=== PATIENT | female | born 1985 | race African-American/Black ===

== ENCOUNTER 2022-03-23 23:10 | Inpatient (IN) | payer OTHER, SELFPAY ==
--- NOTE | ~2022-03-23 | CT_ITS ---
EXAMINATION: CT HEAD WITHOUT CONTRAST CLINICAL INFORMATION: Fall with head strike on corner of bed. COMPARISON: None. TECHNIQUE: Contiguous axial imaging was performed from the skull base to vertex without intravenous administration of contrast. This CT examination was performed using dose optimization techniques as appropriate, variously including the following: *Automated exposure control *Adjustment of mA and/or kV according to patient size (this includes techniques or standardized protocols for targeted exams where dose is matched to indication/reason for exam; i.e. extremities or head) *Use of iterative reconstruction technique DLP: 599 mGy-cm. FINDINGS: There is no intracranial hemorrhage, extra-axial collection, mass effect, or territorial infarction. The ventricles are normal in size without hydrocephalus. The calvarium is intact without fracture. There is mild paranasal sinus mucosal thickening. CT/CT head/brain wo IV con IMPRESSION: No acute intracranial abnormality.
--- OUTSIDE RECORDS SUMMARY | 2022-03-23 23:13 | XMS_ITS | Continuity of Care Document ---
:1985 Author Organization [facility] Address [address] [place] [address]- Care Team Providers Name Role Phone Mirna Humphreys NP Primary Care Physician [place] [facility] [place](s): 01/04/22 - 01/04/[address] [address]- Discharge Disposition: A-D/C AMA Attending Physician: Rosenda Rojas MD Admitting Physician: Rosenda Rojas MD Referring Physician: Not on Staff, Referring MD Allergies, Adverse Reactions, Alerts Substance Reaction Severity Status Other Food Allergy [facility] Active Immunizations Given and Recorded Vaccine Date Status Refusal Reason influenza virus vaccine, inactivated1 01/25/18 Given influenza virus vaccine, inactivated2 01/01/16 Given tetanus/diphtheria/pertussis, acel(Tdap) 04/11/17 Given tetanus/diphtheria/pertussis, acel(Tdap)3 12/02/15 Given tetanus/diphtheria/pertussis, acel(Tdap) 03/06/13 Given Human Papillomavirus Vaccine 11/01/11 Given Human Papillomavirus Vaccine 08/30/11 Given Hepatitis B Vaccine (old term) 03/01/01 Given Hepatitis B Vaccine (old term) 04/21/00 Given Hepatitis B Vaccine (old term) 11/17/99 Given Measles/Mumps/Rubella Virus Vaccine 04/21/00 Given Measles/Mumps/Rubella Virus Vaccine 02/04/88 Given tetanus-diphtheria toxoids (Td) 11/17/99 Given Diphth/Pertussis,Acel/Tetanus (oldterm)4 05/16/91 Given Diphth/Pertussis,Acel/Tetanus (oldterm)5 11/14/88 Given Diphth/Pertussis,Acel/Tetanus (oldterm)6 04/14/88 Given Diphth/Pertussis,Acel/Tetanus (oldterm) 02/04/88 Given Diphth/Pertussis,Acel/Tetanus (oldterm) 86 Given Poliovirus Vaccine, Inactivated7 05/16/91 Given Poliovirus Vaccine, Inactivated8 11/14/88 Given Poliovirus Vaccine, Inactivated9 04/14/88 Given Poliovirus Vaccine, [id number] 02/04/88 Given Poliovirus Vaccine, Inactivated 86 Given Haemophilus B Conj Vaccine (oldterm) 02/04/88 Given 1Result Comment: [01/25/2018] [facility][NOTE 3] [id number] Syringe [address]-88 [id number] Comment: [01/01/2016] Left arm injection, pt tolerated [id number] Comment: Tdap VIS given directly to patient. Pt. denies egg allergy, adverse reaction to pastvaccine, hx of GBS.4Admin Note: Exact day unknown.5Admin Note: Exact day unknown.6Admin Note: Exact day unknown.7Admin Note: Exact day unknown.8Admin Note: Exact day unknown.9Admin Note: OPV, Exact day unknown.10Admin Note: OPV Medications folic acid 1 mg oral tablet See Instructions, TAKE 1 TABLET BY MOUTH DAILY, BUT IF INCREASE TO 4 TABLETS DAILY, # 120 tablet, Refills 5, Tot. Refills 5, 10/09/20 14:46:00 EDT, Instructions Replace Required Details, Routeto Pharmacy Electronically, [facility]... Start Date: 10/09/20 Status: Orderedlamotrigine 100 mg oral tablet 150 mg, 1.5, tablet, By Mouth, 2 times a day, # 90 tablet, Refills 5, Tot. Refills 5, Maintenance, 06/10/21 16:13:00 EDT, Route to Pharmacy Electronically, [facility] #[id number], Increasing the dose., 158.6, cm, 04/09/20 14:18:00 EST, Height Start Date: 06/10/21 Stop Date: 12/07/21 Status: Orderedlamotrigine 100 mg oral tablet See Instructions, TAKE 1 TABLET BY MOUTH TWICE DAILY, # 60 tablet, Refills 5, Tot. Refills 5, Instructions Replace Required Details, Route to Pharmacy Electronically, [facility] #[id number], 158.6, cm, 04/09/20 14:18:00 EST, Height Start Date: 05/22/21 Status: OrderedlevETIRAcetam 1000 mg oral tablet See Instructions, TAKE 2 TABLETS BY MOUTH TWICE DAILY, # 120 tablet, 5 Refills, 06/25/21 16:43:00 EDT, [facility] #[id number], 158.6, cm, 04/09/20 14:18:00 EST, Height Start Date: 06/25/21 Status: OrderedOXcarbazepine 600 mg oral tablet 2 tablet, By Mouth, 2 times a day, # 120 tablet, 5 Refills, Maintenance, 11/16/21 16:27:00 EDT, [facility] #[id number], 158.6, cm, 04/09/20 14:18:00 EST, Height Start Date: 11/16/21 Status: Ordered Problem List Condition Confirmation Course Effective Dates Status Health Stat us Informant Complex partial Confirmed Active seizure disorder Headache Confirmed Active Irregular menses Confirmed Active Uterine scar from Confirmed Active previous delivery affecting Vital Signs Most recent to oldest [Reference Range]: 1 2 Oxygen Saturation [94-100 %] 100 % 100 % (01/04/22 11:30 AM) (01/04/22 11:12 AM) Pulse Rate [55-90 bpm] 106 bpm 100 bpm *H* *H* (01/04/22 11:30 AM) (01/04/22 11:12 AM) Blood Pressure [90-138/55-84 mm Hg] 141/85 mm Hg 130/ 94 mm Hg *H* (01/04/22 11:12 AM) (01/04/22 11:30 AM) Respiratory Rate [16-30 br/min] 20 br/min 16 br/mi n (01/04/22 11:30 AM) (01/04/22 11:12 AM) Mode of Delivery (Oxygen) Room air (01/04/22 11:30 AM) Blood pressure sites Arm, right (01/04/22 11:30 AM) Social History Social History Type Response Tobacco Use: 4 or less cigarettes(le ss than 1/4 pack)/day in last 30 days. Sex EKG study Event Display: ECG 12-Lead Authored Date: Please click on pdf link to open report Event Display: ECG 12-Lead Authored Date: Ventricular Rate: 103 BPM Atrial Rate: 103 BPM P-R Interval: 124 ms QRS Duration: 74 ms Q-T Interval: 356 ms QTC Calculation(Bazett): 466 ms P [place]: 80 degrees R [place]: 83 degrees T [place]: 56 degrees Sinus tachycardia Biatrial enlargement Left ventricular hypertrophy Abnormal ECG When compared with ECG of 21-JUN-2016 11:26, No significant change was found Confirmed by HERBIE TY ([id number]) on 01/04/2022 3:05:39 PM [place]: HERBIE TY Patient Care team information Care Team PersonnelName: Mirian Arriaga RN Position: S RN Member Role: Primary Care Nurse Name: Mirna Humphreys NP Position: [facility] PCO Associate Professional Member Role: PCP Address: Address: [address] [place] [id number] Name: Giuliano Cortez RN Position: [facility] RN Member Role: Primary Care Nurse Name: Radha Hauser RN Position: [facility] OB RN Member Role: Primary Care Nurse Name: Connie Inman Position: [facility] Associate Professional Member Role: ED Physician Help Desk Analyst Address: Address: [address] [place] [address]- Name: Geno Brooke RN Position: [facility] ED RN W/OE and Tasks Member Role: Patient Care Provider Name: Rosenda Rojas MD Position: [facility] ED Medicine MD Member Role: Admitting Physician Address: Address: [address] [place] [address] - Name: Kodak Syed Position: [facility] ED TA [facility] Member Role: Patient Care Provider Care Team Related PersonsName: GENO SHIPMAN Address: home [address] [address] Name: SALVADOR SHIPMAN Address: home [address] [place] [address]
--- OUTSIDE RECORDS SUMMARY | 2022-03-23 23:13 | XMS_ITS | Continuity of Care Document ---
:1985 Author Organization [address], [address] [place] [address]- Care Team Providers Name Role Phone Mirna Humphreys NP Primary Care Physician Encounter [facility] Date(s): 11/16/21 - 12/16/[address], [address] [place], [place] [address] Allergies, Adverse Reactions, Alerts Substance Reaction Severity Status Other Food Allergy [place] Active Immunizations Given and Recorded Vaccine Date [...] Poliovirus Vaccine, Inactivated9 04/14/88 Given Poliovirus Vaccine, [id number] 02/04/88 Given Poliovirus Vaccine, Inactivated 86 Given Haemophilus B Conj Vaccine (oldterm) 02/04/88 Given 1Result Comment: [01/25/2018] [facility] [place] [id number] [facility] [id number] [id number] Comment: [01/01/2016] Left arm injection, pt tolerated [id number] Comment: Tdap VIS given directly to patient. [...] Instructions Replace Required Details, Routeto Pharmacy Electronically, [facility]... Start Date: 10/09/20 Status: Orderedlamotrigine 100 mg oral tablet 150 mg, 1.5, tablet, By Mouth, 2 times a day, # 90 tablet, Refills 5, Tot. Refills 5, Maintenance, 06/10/21 16:13:00 EDT, Route to Pharmacy Electronically, [facility] #[id number], Increasing the dose., 158.6, cm, 04/09/20 14:18:00 EST, Height Start Date: 06/10/21 Stop Date: 12/07/21 Status: Orderedlamotrigine 100 mg oral tablet See Instructions, TAKE 1 TABLET BY MOUTH TWICE DAILY, # 60 tablet, Refills 5, Tot. Refills 5, Instructions Replace Required Details, Route to Pharmacy Electronically, [facility] #[id number], 158.6, cm, 04/09/20 14:18:00 EST, Height Start Date: 05/22/21 Status: OrderedlevETIRAcetam 1000 mg oral tablet See Instructions, TAKE 2 TABLETS BY MOUTH TWICE DAILY, # 120 tablet, 5 Refills, 06/25/21 16:43:00 EDT, [facility] #[id number], 158.6, cm, 04/09/20 14:18:00 EST, Height Start Date: 06/25/21 Status: OrderedOXcarbazepine 600 mg oral tablet 2 tablet, By Mouth, 2 times a day, # 120 tablet, 5 Refills, Maintenance, 11/16/21 16:27:00 EDT, [facility] #[id number], 158.6, cm, 04/09/20 14:18:00 EST, Height Start Date: 11/16/21 Status: Ordered Problem List Condition Confirmation Course Effective Dates Status Health Stat us Informant Complex partial Confirmed Active seizure disorder Headache Confirmed Active Irregular menses Confirmed Active Uterine scar from Confirmed Active previous delivery affecting Social History Social History Type Response Tobacco Use: 4 or less cigarettes(le ss than 1/4 pack)/day in last 30 days. Sex Patient Care team information PersonnelName: Mirna Humphreys NP Address: Address: [address] [place] [address]
--- OUTSIDE RECORDS SUMMARY | 2022-03-23 23:13 | XMS_ITS | Continuity of Care Document ---
:1985 Author Organization [facility] Address Unavailable , Care Team Providers Name Role Phone Petr MOLINA, Mirna Primary Care Physician [place] [facility] [place](s[place] 04/16/21 - 05/16/21 [facility] Allergies, Adverse Reactions, Alerts Substance Reaction Severity [...] Poliovirus Vaccine, Inactivated9 04/14/88 Given Poliovirus Vaccine, [id number] 02/04/88 Given Poliovirus Vaccine, Inactivated 86 Given Haemophilus B Conj Vaccine (oldterm) 02/04/88 Given 1Result Comment: [01/25/2018] [facility] [id number] Syringe [address]-12 [id number] Comment: [01/01/2016] Left arm injection, pt tolerated [id number] Comment: Tdap VIS given directly to patient. [...] Instructions Replace Required Details, Routeto Pharmacy Electronically, [facility]... Start Date: 10/09/20 Status: Orderedlamotrigine 100 mg oral tablet 150 mg, 1.5, tablet, By Mouth, 2 times a day, # 90 tablet, Refills 5, Tot. Refills 5, Maintenance, 10/09/20 14:43:00 EDT, Route to Pharmacy Electronically, [facility] #[id number], Increasing the dose., 158.6, cm, 04/09/20 14:18:00 EST, Height Start Date: 10/09/20 Stop Date: 04/07/21 Status: OrderedlevETIRAcetam 1000 mg oral tablet 2 tablet, By Mouth, 2 times a day, # 120 tablet, 5 Refills, Maintenance, 10/09/20 14:45:00 EDT, [facility] #[id number], 158.6, cm, 04/09/20 14:18:00 EST, Height Start Date: 10/09/20 Stop Date: 04/07/21 Status: OrderedOXcarbazepine 600 mg oral tablet 2 tablet, By Mouth, 2 times a day, # 120 tablet, 5 Refills, Maintenance, 04/08/21 15:03:00 EST, [facility] #[id number], 158.6, cm, 04/09/20 14:18:00 EST, Height Start Date: 04/08/21 Status: Ordered Problem List Condition Effective Dates Status Health Status Informant Complex partial seizure Active disorder(Confirmed) Headache(Confirmed) Active Irregular menses(Confirmed) Active Uterine scar from previous Active delivery affecting (Confirmed) Social History Social History Type Response Tobacco Use: 4 or less cigarettes(le ss than 1/4 pack)/day in last 30 days. Sex
--- OUTSIDE RECORDS SUMMARY | 2022-03-23 23:13 | XMS_ITS | Continuity of Care Document ---
:1985 Author Organization [facility] Address [address] [place] [address]- Care Team Providers Name Role Phone Mirna Humphreys NP Primary Care Physician Encounter [facility] [place] Date(s): 04/18/20 - 05/18/20 [facility] [address] [place] [address]- Attending Physician: Juve Parson Admitting Physician: AdmJuve medeiros Referring Physician: AdmtrJuve Allergies, Adverse Reactions, Alerts Substance Reaction Severity [...] Poliovirus Vaccine, Inactivated9 04/14/88 Given Poliovirus Vaccine, [id number] 02/04/88 Given Poliovirus Vaccine, Inactivated 86 Given Haemophilus B Conj Vaccine (oldterm) 02/04/88 Given 1Result Comment: [01/25/2018] [facility] [address]-65 Syringe [id number] [id number] Comment: [01/01/2016] Left arm injection, pt tolerated [id number] Comment: Tdap VIS given directly to patient. [...] TABLETS DAILY, # 120 tablet, Refills 5, Maintenance, Instructions Replace Required Details, Route to Pharmacy Electronically, [facility] #[id number], 158.6, cm, ... Start Date: 04/20/19 Status: Orderedlamotrigine 100 mg oral tablet 1, tablet, By Mouth, 2 times a day, # 60 tablet, Refills 5, Tot. Refills 0, Maintenance, 01/17/20 15:32:00 EST, Route to Pharmacy Electronically, [facility] #[id number], 158.6, cm, 10/08/19 14:34:00 EDT, Height Start Date: 01/17/20 Status: OrderedlevETIRAcetam 1000 mg oral tablet 2 tablet, By Mouth, 2 times a day, # 120 tablet, 4 Refills, Maintenance, 03/27/20 16:45:00 EST, [facility] #[id number], 158.6, cm, 10/08/19 14:34:00 EDT, Height Start Date: 03/27/20 Status: OrderedOXcarbazepine 600 mg oral tablet 2 tablet, By Mouth, 2 times a day, # 120 tablet, 5 Refills, Maintenance, 01/17/20 15:32:00 [facility], 158.6, cm, 10/08/19 14:34:00 EDT, Height Start Date: 01/17/20 Status: Ordered Problem List Condition Effective Dates Status Health Status Informant Complex partial seizure Active disorder(Confirmed) Headache(Confirmed) Active Irregular menses(Confirmed) Active Uterine scar from previous Active delivery affecting (Confirmed) Social History Social History Type Response Tobacco Use: 4 or less cigarettes(le ss than 1/4 pack)/day in last 30 days. Sex
--- OUTSIDE RECORDS SUMMARY | 2022-03-23 23:13 | XMS_ITS | Continuity of Care Document ---
:1985 Author Organization [facility] Address Unavailable , Care Team Providers Name Role Phone Mirna Humphreys NP Primary Care Physician [place] [facility] [place] 01/16/21 - 05/16/21 [facility] Attending Physician: Not on Staff, Attending MD Allergies, Adverse Reactions, Alerts Substance Reaction [...] Poliovirus Vaccine, Inactivated9 04/14/88 Given Poliovirus Vaccine, [id number] 02/04/88 Given Poliovirus Vaccine, Inactivated 86 Given Haemophilus B Conj Vaccine (oldterm) 02/04/88 Given 1Result Comment: [01/25/2018] [facility] [place] [address]-79 Syringe [id number] Comment: [01/01/2016] Left arm injection, pt tolerated [id number] Comment: Tdap VIS given directly to patient. [...] Instructions Replace Required Details, Routeto Pharmacy Electronically, [facility]... Start Date: 10/09/20 Status: Orderedlamotrigine 100 mg oral tablet 150 mg, 1.5, tablet, By Mouth, 2 times a day, # 90 tablet, Refills 5, Tot. Refills 5, Maintenance, 10/09/20 14:43:00 EDT, Route to Pharmacy Electronically, [facility] #[id number], Increasing the dose., 158.6, cm, 04/09/20 14:18:00 EST, Height Start Date: 10/09/20 Stop Date: 04/07/21 Status: OrderedlevETIRAcetam 1000 mg oral tablet 2 tablet, By Mouth, 2 times a day, # 120 tablet, 5 Refills, Maintenance, 10/09/20 14:45:00 EDT, [facility] #[id number], 158.6, cm, 04/09/20 14:18:00 EST, Height Start Date: 10/09/20 Stop Date: 04/07/21 Status: OrderedOXcarbazepine 600 mg oral tablet 2 tablet, By Mouth, 2 times a day, # 120 tablet, 5 Refills, Maintenance, 04/08/21 15:03:00 EST, [facility] #[id number], 158.6, cm, 04/09/20 14:18:00 EST, Height Start [...]
--- OUTSIDE RECORDS SUMMARY | 2022-03-23 23:13 | XMS_ITS | Continuity of Care Document ---
:1985 Author Organization [facility] Address Unavailable , Care Team Providers Name Role Phone Mirna Humphreys NP Primary Care Physician Encounter [facility] [place] Date(s): 04/16/21 - 05/16/21 [facility] Attending Physician: Juve Parson Admitting Physician: Juve Parson Referring Physician: Juve Parson Allergies, Adverse Reactions, Alerts Substance Reaction Severity [...] Poliovirus Vaccine, Inactivated9 04/14/88 Given Poliovirus Vaccine, [id number] 02/04/88 Given Poliovirus Vaccine, Inactivated 86 Given Haemophilus B Conj Vaccine (oldterm) 02/04/88 Given 1Result Comment: [01/25/2018] [facility] [address]-57 Syringe [address]-43 [id number] Comment: [01/01/2016] Left arm injection, pt tolerated [id number] Comment: Tdap VIS given directly to patient. [...] Instructions Replace Required Details, Routeto Pharmacy Electronically, [facility]... Start Date: 10/09/20 Status: Orderedlamotrigine 100 mg oral tablet 150 mg, 1.5, tablet, By Mouth, 2 times a day, # 90 tablet, Refills 5, Tot. Refills 5, Maintenance, 10/09/20 14:43:00 EDT, Route to Pharmacy Electronically, [facility] #[id number], Increasing the dose., 158.6, cm, 04/09/20 14:18:00 EST, Height Start Date: 10/09/20 Stop Date: 04/07/21 Status: OrderedlevETIRAcetam 1000 mg oral tablet 2 tablet, By Mouth, 2 times a day, # 120 tablet, 5 Refills, Maintenance, 10/09/20 14:45:00 EDT, [facility] #[id number], 158.6, cm, 04/09/20 14:18:00 EST, Height Start Date: 10/09/20 Stop Date: 04/07/21 Status: OrderedOXcarbazepine 600 mg oral tablet 2 tablet, By Mouth, 2 times a day, # 120 tablet, 5 Refills, Maintenance, 04/08/21 15:03:00 EST, [facility] #[id number], 158.6, cm, 04/09/20 14:18:00 EST, Height Start [...]
--- OUTSIDE RECORDS SUMMARY | 2022-03-23 23:13 | XMS_ITS | Continuity of Care Document ---
:1985 Author Organization [facility] Address [address] [place] [address]- Care Team Providers Name Role Phone Bruna Fairchild NP Primary Care Physician En[place] [facility] [place](s): 02/12/19 - 02/22/19 [facility] [address] [place] [address]- [facility] Attending Physician: Juve Parson Admitting Physician: Juve Parson Referring Physician: AdmtrJuve Allergies, Adverse Reactions, Alerts [...] Poliovirus Vaccine, Inactivated9 04/14/88 Given Poliovirus Vaccine, [id number] 02/04/88 Given Poliovirus Vaccine, Inactivated 86 Given Haemophilus B Conj Vaccine (oldterm) 02/04/88 Given 1Result Comment: [01/25/2018] [facility] [id number] [facility] [address]-18 [id number] Comment: [01/01/2016] Left arm injection, pt tolerated [id number] Comment: Tdap VIS given directly to patient. Pt. denies egg allergy, adverse reaction to pastvaccine, hx of GBS.4Admin Note: Exact day unknown.5Admin Note: Exact day unknown.6Admin Note: Exact day unknown.7Admin Note: Exact day unknown.8Admin Note: Exact day unknown.9Admin Note: OPV, Exact day unknown.10Admin Note: OPV Medications folic acid 1 mg oral tablet 4 mg, 4, tablet, By Mouth, Daily, 1 tab daily, but if , increase to 4 tabs daily, # 120 tablet, Refills 5, Tot. Refills 5, Maintenance, 11/03/18 13:00:24 EDT, Route to Pharmacy Electronically, [id number] Start Date: 11/03/18 Stop Date: 05/02/19 Status: OrderedKeppra 1000 mg oral tablet 2 tablet = 2,000 mg, By Mouth, 2 times a day, # 120 tablet, 5 Refills, Maintenance, 08/11/18 12:48:35 EDT Start Date: 08/11/18 Stop Date: 02/07/19 Status: OrderedLaMICtal 100 mg oral tablet 100 mg, 1, tablet, By Mouth, 2 times a day, # 60 tablet, Refills 5, Tot. Refills 5, Maintenance, 02/07/19 12:47:58 EST, Route to Pharmacy Electronically, [id number], [facility][id number], 158.4, cm, 11/03/18 12:44:47 E... Start Date: 02/07/19 Stop Date: 08/06/19 Status: OrderedTrileptal 600 mg oral tablet 2 tablet = 1,200 mg, By Mouth, 2 times a day, # 120 tablet, 5 Refills, Maintenance, 02/07/19 12:49:02 EST, ., 158.4, cm, 11/03/18 12:44:47 EDT, Height, 65.7, kg, 05/25/17 9:18:45 EDT, Dry Weight Start Date: 02/07/19 Stop Date: 08/06/19 Status: Ordered Problem List Condition Effective Dates Status Health Status Informant Complex partial seizure Active disorder(Confirmed) Headache(Confirmed) Active Irregular menses(Confirmed) Active Uterine scar from previous Active delivery affecting (Confirmed) Social History Social History Type Response Smoking Status Never smoker; Tobacco use ti mes per day: tried for 6 mths as a teenager; entered on: 09/19/17 Sex
--- OUTSIDE RECORDS SUMMARY | 2022-03-23 23:13 | XMS_ITS | Continuity of Care Document ---
:1985 Author Organization [facility] Address [address] [place] [address]- Care Team Providers Name Role Phone Bruna Fairchild NP Primary Care Physician [place] [facility] [place] 12/02/18 - 03/14/19 [facility] [address] [place] [address]- [facility] Attending Physician: Not on Staff, Attending MD [...] Poliovirus Vaccine, Inactivated9 04/14/88 Given Poliovirus Vaccine, [id number] 02/04/88 Given Poliovirus Vaccine, Inactivated 86 Given Haemophilus B Conj Vaccine (oldterm) 02/04/88 Given 1Result Comment: [01/25/2018] [facility] [id number] [facility] [address]-23 [id number] Comment: [01/01/2016] Left arm injection, pt tolerated [id number] Comment: Tdap VIS given directly to patient. [...] 11/03/18 13:00:24 EDT, Route to Pharmacy Electronically, [id number] Start Date: 11/03/18 Stop Date: 05/02/19 Status: [...] 02/07/19 12:47:58 EST, Route to Pharmacy Electronically, [id number], [facility] #[id number], 158.4, cm, 11/03/18 12:44:47 E... Start Date: [...]
--- OUTSIDE RECORDS SUMMARY | 2022-03-23 23:13 | XMS_ITS | Continuity of Care Document ---
:1985 Author Organization [facility] Address [address] [facility], 3rd Floor, [address] [place] [id number]- Care Team Providers Name Role Phone Mirna Humphreys NP Primary Care Physician Encounter [facility] [place] Date(s): 01/19/22 - 02/18/22 [facility] [address], 3[address] Floor, [address] [place] [id number] Allergies, Adverse Reactions, Alerts Substance Reaction Severity [...] Poliovirus Vaccine, Inactivated9 04/14/88 Given Poliovirus Vaccine, [id number] 02/04/88 Given Poliovirus Vaccine, Inactivated 86 Given Haemophilus B Conj Vaccine (oldterm) 02/04/88 Given 1Result Comment: [01/25/2018] [facility] [id number] [facility] [id number] Comment: [01/01/2016] Left arm injection, pt tolerated [id number] Comment: Tdap VIS given directly to patient. [...] 120 tablet, Refills 5, Tot. Refills 5, 02/17/22 12:07:00 EST, Instructions Replace Required Details, [facility] Electronically, [email or web address] Start Date: 02/17/22 Status: Orderedlamotrigine 100 mg oral tablet 150 mg, 1.5, tablet, By Mouth, 2 times a day, # 90 tablet, Refills 5, Tot. Refills 5, Maintenance, 01/19/22 16:46:00 EST, Route to Pharmacy Electronically, [email or web address] #[id number], Increasing the dose., 158.6, cm, 04/09/20 14:18:00 EST, Height Start Date: 01/19/22 Stop Date: 07/18/22 Status: Orderedlamotrigine 100 mg oral tablet See Instructions, TAKE 1 TABLET BY MOUTH TWICE DAILY, # 60 tablet, Refills 5, Tot. Refills 5, Instructions Replace Required Details, Route to Pharmacy Electronically, [facility] #[id number], 158.6, cm, 04/09/20 14:18:00 EST, Height Start Date: 05/22/21 Status: OrderedlevETIRAcetam 1000 mg oral tablet See Instructions, TAKE 2 TABLETS BY MOUTH TWICE DAILY, # 120 tablet, 5 Refills, 01/19/22 16:46:00 EST, [facility] #[id number], 158.6, cm, 04/09/20 14:18:00 EST, Height Start Date: 01/19/22 Status: OrderedOXcarbazepine 600 mg oral tablet 2 tablet, By Mouth, 2 times a day, # 120 tablet, 5 Refills, Maintenance, 11/16/21 16:27:00 EDT, [facility] #[id number], 158.6, cm, 04/09/20 14:18:00 EST, Height Start [...] 30 days. Sex Patient Care team information Care Team PersonnelName: Corina CORTES, Mirian Position: S RN Member Role: Primary Care Nurse Name: Mirna Humphreys NP Position: [facility] PCO Associate Professional Member Role: PCP Address: Address: [address] [place] [id number]- Name: Giuliano Mullins RN Position: S RN Member Role: Primary Care Nurse Name: Radha Hauser RN Position: [facility] OB RN Member Role: Primary Care Nurse Care Team Related PersonsName: GENO SHIPMAN Address: home [address] [address] Name: UMBERTOSALVADOR Address: home [address] [place] [address]
--- OUTSIDE RECORDS SUMMARY | 2022-03-23 23:13 | XMS_ITS | Continuity of Care Document ---
:1985 Author Organization [facility] Address Unavailable , Care Team Providers Name Role Phone Mirna Humphreys NP Primary Care Physician Encounter [facility] Date(s): 06/10/21 - 07/10/21 [facility] Allergies, Adverse Reactions, Alerts Substance [...] Poliovirus Vaccine, Inactivated9 04/14/88 Given Poliovirus Vaccine, [id number] 02/04/88 Given Poliovirus Vaccine, Inactivated 86 Given Haemophilus B Conj Vaccine (oldterm) 02/04/88 Given 1Result Comment: [01/25/2018] [facility] [id number] Syringe [id number] Comment: [01/01/2016] Left arm injection, pt tolerated [id number] Comment: Tdap VIS given directly to patient. [...] Instructions Replace Required Details, Rout[facility] Pharmacy Electronically, [facility]... Start Date: 10/09/20 Status: Orderedlamotrigine 100 mg oral tablet 150 mg, 1.5, tablet, By Mouth, 2 times a day, # 90 tablet, Refills 5, Tot. Refills 5, Maintenance, 06/10/21 16:13:00 EDT, Route to Pharmacy Electronically, [facility] #[id number], Increasing the dose., 158.6, cm, 04/09/20 14:18:00 EST, Height Start Date: 06/10/21 Stop Date: 12/07/21 Status: Orderedlamotrigine 100 mg oral tablet See Instructions, TAKE 1 TABLET BY MOUTH TWICE DAILY, # 60 tablet, Refills 5, Tot. Refills 5, Instructions Replace Required Details, Route to Pharmacy Electronically, [facility] #[id number], 158.6, cm, 04/09/20 14:18:00 EST, Height Start Date: 05/22/21 Status: OrderedlevETIRAcetam 1000 mg oral tablet See Instructions, TAKE 2 TABLETS BY MOUTH TWICE DAILY, # 120 tablet, 5 Refills, 06/25/21 16:43:00 EDT, [facility] #[id number], 158.6, cm, 04/09/20 14:18:00 EST, Height Start Date: 06/25/21 Status: OrderedOXcarbazepine 600 mg oral tablet 2 tablet, By Mouth, 2 times a day, # 120 tablet, 5 Refills, Maintenance, 04/08/21 15:03:00 EST, [facility] #[id number], 158.6, cm, 04/09/20 14:18:00 EST, Height Start [...]
--- OUTSIDE RECORDS SUMMARY | 2022-03-23 23:13 | XMS_ITS | Continuity of Care Document ---
:1985 Author Organization [facility] Address [address] [place] [id number]- Care Team Providers Name Role Phone Devorah MOLINA, Bruna Primary Care Physician Encounter [facility] Date(s): 04/12/19 - 04/19/[address] [id number]- [facility] Encounter Diagnosis Physical exam (Discharge Diagnosis) - 04/12/19 Complex partial seizure disorder (Discharge Diagnosis) - 04/12/19 Headache (Discharge Diagnosis) - 04/12/19 Attending Physician: Not on Staff, Attending MD [...] Poliovirus Vaccine, Inactivated9 04/14/88 Given Poliovirus Vaccine, [id number] 02/04/88 Given Poliovirus Vaccine, Inactivated 86 Given Haemophilus B Conj Vaccine (oldterm) 02/04/88 Given 1Result Comment: [01/25/2018] [facility] [id number] [facility] [address]-89 [id number] Comment: [01/01/2016] Left arm injection, pt tolerated [id number] Comment: Tdap VIS given directly to patient. [...] 11/03/18 13:00:24 EDT, Route to Pharmacy Electronically, [id number], [facility]. Start Date: 11/03/18 Stop Date: 05/02/19 Status: OrderedKeppra 1000 mg oral tablet 2 tablet = 2,000 mg, By Mouth, 2 times a day, # 120 tablet, 5 Refills, Maintenance, 03/26/19 15:54:00 EST, [facility] #[id number], 158.4, cm, 11/03/18 12:44:00 EDT, Height, 65.7, kg, 05/25/17 9:18:00 EDT, Dry Weight Start Date: 03/26/19 Stop Date: 09/22/19 Status: OrderedLaMICtal 100 mg oral tablet 100 mg, 1, tablet, By Mouth, 2 times a day, # 60 tablet, Refills 5, Tot. Refills 5, Maintenance, 02/07/19 12:47:58 EST, Route to Pharmacy Electronically, [id number], [facility] #[id number], 158.4, cm, 11/03/18 12:44:47 E... Start Date: [...] scar from previous Active delivery affecting (Confirmed) Diagnosis Diagnosis Type Effective Dates Health Status Clinical In formant Service Physical exam Discharge 04/12/19 Diagnosis Complex partial Discharge 04/12/19 seizure disorder Diagnosis Headache Discharge 04/12/19 Diagnosis Vital Signs Most recent to oldest [Reference Range]: 1 Height 158.6 cm (04/12/19 1:36 PM) Weight 58.6 kg (04/12/19 1:36 PM) Oxygen Saturation [94-100 %] 98 % (04/12/19 1:36 PM) Pulse Rate [55-90 bpm] 80 bpm (04/12/19 1:36 PM) Body Mass Index [18.5-24.99] 23.3 (04/12/19 1:36 PM) Blood Pressure [90-138/55-84 mm Hg] 102/64 mm Hg (04/12/19 1:36 PM) Temperature [96.8-100.4 DegF] 98 DegF (04/12/19 1:36 PM) Mode of Delivery (Oxygen) Room air (04/12/19 1:36 PM) Blood pressure sites Arm, left (04/12/19 1:36 PM) Temperature Route Oral (04/12/19 1:36 PM) Weight Obtained Via Standing scale (04/12/19 1:36 PM) Social History Social History Type Response Tobacco Use: 4 or less cigarettes(le ss than 1/4 pack)/day in last 30 days. Sex
--- OUTSIDE RECORDS SUMMARY | 2022-03-23 23:13 | XMS_ITS | Continuity of Care Document ---
:1985 Author Organization [facility] Address [address] [facility], 3rd Floor, [address] [place] [id number]- Care Team Providers Name Role Phone Mirna Christopher NP Primary Care Physician Encounter [facility] Date(s): 09/14/19 - 10/14/19 [facility] [address] [facility], 3rd Floor, [address] [place] [address]- [facility] Allergies, Adverse Reactions, Alerts Substance Reaction Severity [...] Poliovirus Vaccine, Inactivated9 04/14/88 Given Poliovirus Vaccine, [id number] 02/04/88 Given Poliovirus Vaccine, Inactivated 86 Given Haemophilus B Conj Vaccine (oldterm) 02/04/88 Given 1Result Comment: [01/25/2018] [facility] [id number] Syringe [id number] Comment: [01/01/2016] Left arm injection, pt tolerated [id number] Comment: Tdap VIS given directly to patient. [...] Replace Required Details, Route to Pharmacy Electronically, [facility] #[id number], 158.6, cm, ... Start Date: 04/20/19 Status: Orderedlamotrigine 100 mg oral tablet 1, tablet, By Mouth, 2 times a day, # 60 tablet, Refills 5, Tot. Refills 0, Maintenance, 07/20/19 13:04:00 EDT, Route to Pharmacy Electronically, [facility] #[id number], 158.6, cm, 04/12/19 13:36:00 EST, Height Start Date: 07/20/19 Status: OrderedlevETIRAcetam 1000 mg oral tablet 2 tablet, By Mouth, 2 times a day, # 120 tablet, 5 Refills, Maintenance, 09/14/19 16:06:00 EDT, [facility] #[id number], 158.6, cm, 04/12/19 13:36:00 EST, Height Start Date: 09/14/19 Status: OrderedOXcarbazepine 600 mg oral tablet 2 tablet, By Mouth, 2 times a day, # 120 tablet, 5 Refills, Maintenance, 07/20/19 13:04:00 EDT, [facility] #[id number], 158.6, cm, 04/12/19 13:36:00 EST, Height Start Date: 07/20/19 Status: Ordered Problem List Condition Effective Dates Status Health Status Informant Complex partial seizure Active disorder(Confirmed) Headache(Confirmed) Active Irregular menses(Confirmed) Active Uterine scar from previous Active delivery affecting (Confirmed) Social History Social History Type Response Tobacco Use: 4 or less cigarettes(le ss than 1/4 pack)/day in last 30 days. Sex
[2022-03-23 23:30] VITALS: BP 151/87; PULSE 89; TEMP 36.4; O2SAT 99
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
[2022-03-24 08:21] VITALS: BP 124/74; PULSE 115; RESP 16; TEMP 36.9; O2SAT 100
[2022-03-24] MEDS: nitrofurantoin macrocrystaL 50 MG CAPSULE 100 MG PO ×2 (08:53→21:21)
[2022-03-24] MEDS: Folic Acid 1 MG TABLET PO (08:53)
[2022-03-24] MEDS: OXcarbazepine 300 MG TABLET 1200 MG PO ×2 (08:53→21:20)
[2022-03-24] MEDS: lamoTRIgine 100 MG TABLET 150 MG PO ×2 (08:53→21:22)
[2022-03-24] MEDS: risperiDONE 1 MG TABLET PO (08:54)
[2022-03-24 09:28] LABS: Alanine Aminotransferase 7 U/L (0-31); Albumin Level 4.6 g/dL (3.5-5.0); Alkaline Phosphatase 66 U/L (39-117); Anion Gap 18 (12-20); Aspartate Amino Transferase 18 U/L (5-31); Bilirubin Total 0.9 mg/dL (0.0-1.0); Blood Urea Nitrogen 9 mg/dL (9-16); Calcium 9.5 mg/dL (8.4-10.2); Carbon Dioxide 23 mmol/L (22-29); Chloride 106 mmol/L (96-108); Cholesterol 166 mg/dL; Estimated Glomerular Filt Rate > 60; Glucose Fasting 85 mg/dL (60-99); HDL Cholesterol 45 mg/dL; LDL Cholesterol Calculated 110 mg/dl; Potassium 3.8 mmol/L (3.3-5.1); Sodium 143 mmol/L (135-145); Total Protein 7.4 g/dL (6.5-8.0); Triglycerides 55 mg/dL
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
[2022-03-24] MEDS: levETIRAcetam 1,000 MG TABLET 2000 MG PO ×2 (14:24→21:22)
--- NOTE | 2022-03-24 14:24 | PC.NURSE ---
9am dose of Keppra not given (not available in pyxis); given at 14:25 w/ ok. OK to give 9pm dose today as well per provider.
[2022-03-24 16:40] VITALS: BP 154/95; PULSE 118; TEMP 36.9
[2022-03-24] MEDS: risperiDONE 2 MG TABLET PO (21:21)
[2022-03-25 08:54] VITALS: BP 144/93; PULSE 101; RESP 16; TEMP 37.1; O2SAT 99
[2022-03-25] MEDS: lamoTRIgine 100 MG TABLET 150 MG PO ×2 (09:37→21:46)
[2022-03-25] MEDS: OXcarbazepine 300 MG TABLET 1200 MG PO ×2 (09:37→21:45)
[2022-03-25] MEDS: levETIRAcetam 1,000 MG TABLET 2000 MG PO ×2 (09:38→21:46)
[2022-03-25] MEDS: nitrofurantoin macrocrystaL 50 MG CAPSULE 100 MG PO ×2 (09:38→21:47)
[2022-03-25] MEDS: risperiDONE 2 MG TABLET PO ×2 (09:38→21:47)
[2022-03-25] MEDS: Folic Acid 1 MG TABLET PO (09:38)
[2022-03-25] MEDS: Divalproex Sodium ER 500 MG TAB.ER.24H PO ×2 (13:37→21:47)
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
[2022-03-25 19:20] VITALS: BP 139/81; PULSE 102; TEMP 36.8
[2022-03-26 08:33] VITALS: BP 154/78; PULSE 113; RESP 16; TEMP 36.6; O2SAT 98
[2022-03-26] MEDS: Acetaminophen 325 MG TABLET 650 MG PO (09:17)
[2022-03-26] MEDS: OXcarbazepine 300 MG TABLET 1200 MG PO ×2 (09:17→22:56)
[2022-03-26] MEDS: Divalproex Sodium ER 500 MG TAB.ER.24H PO (09:18)
[2022-03-26] MEDS: levETIRAcetam 1,000 MG TABLET 2000 MG PO ×2 (09:18→22:57)
[2022-03-26] MEDS: Folic Acid 1 MG TABLET PO (09:18)
[2022-03-26] MEDS: nitrofurantoin macrocrystaL 50 MG CAPSULE 100 MG PO ×2 (09:18→22:56)
[2022-03-26] MEDS: risperiDONE 2 MG TABLET PO (09:18)
[2022-03-26] MEDS: lamoTRIgine 100 MG TABLET 150 MG PO ×2 (09:18→22:57)
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
--- NOTE | 2022-03-26 11:24 | PC.NURSE ---
pt complains of urinary retention. no pain reported, i feel like I have to go, then I sit and only a little comes out and I have to force it . Post void residual w/ bladder scanner is 94ml. provider notified.
--- NOTE | 2022-03-26 15:13 | P.CONHOSP_ITS ---
History of Present Illness Data of Consult Service Date: 03/26/22 <DILLON Can - Last Filed: 03/26/22 15:32> Primary Care Provider: Unknown Physician <DILLON Can - Last Filed: 03/26/22 15:32> HPI Reason for consult: Admission H&P <DILLON Can - Last Filed: 03/26/22 15:32> Pt is a 36-year-old female with a PMH significant for?manic/psychotic behaviors, bipolar 1 disorder, and a seizure disorder who is admitted to Psychiatry with medical consult for standard admission history and physical. Patient states that she has a history of seizure disorder on Keppra and oxcarbazepine. Patient is uncertain how often she has seizures because she does not remember them and has to be told by her family when she has had an episode. Often feels dizzy after an episode. Patient notes that she is not fully compliant with her medications, only ?sometimes? taking them. Patient states that 2 days ago she had a seizure in her room in the hospital, hitting her head on the corner of the bed and then the center of the bed. This seizure was unwitnessed by any patients or staff, and she did not tell anyone about this episode. However patient states she was able to remember it because she did not completely lose consciousness. Patient said she was dizzy afterwards, and had a small cut on the side of her eye. Patient says that she has ?a little? headache, but denies any vision changes. Patient does not have any other acute medical complaints at this time. <DILLON Can - Last Filed: 03/26/22 15:32> Review of Systems Review of Systems: Yes all other systems are reviewed and are negative <DILLON Can - Last Filed: 03/26/22 15:32> [facility] Medical History: Medical History Bipolar 1 disorder, mixed, severe Seizure disorder <DILLON Can - Last Filed: 03/26/22 15:32> Social History: Social History Household Members: Family and Children Household Members Other:: LIVES WITH GRANDMOTHER, UNCLE, AND 2 CHILDREN Do you presently have visiting nurse or other home services: No Unable to assess alcohol history related to: Unknown Patient Tobacco Use Status: Never used Tobacco Smoked in Last 30 Days: No Patient Interested in Nicotine Replacement: No Patient Given Instructions on How to Stop Smoking: No Second Hand Smoke Exposure: No Use of substances other than those prescribed or required for medical reasons: Yes Substance Use Type: Marijuana Currently Displaying Signs/Symptoms of Drug Intoxication Withdrawal: No Do you feel safe in your current relationship?: No Current Relationship Is there a partner from a previous relationship who is making you feel unsafe now?: No Are you made to feel afraid or neglected: No Advance Directives: No Advance Directives Information Provided: Yes Do you have thoughts of harming others: None Do you have a plan to hurt others: No Plan Recently lost weight without trying: No Eating poorly because of decreased appetite: Yes Nutrition Risks: No Nutritional Risk Patient : No : No Poor oral hygiene: No service: No Sexual orientation: Straight/Heterosexual <DILLON Can - Last Filed: 03/26/22 15:32> Meds Allergies/Adverse reactions: Allergies Allergy/AdvReac Type Severity Reaction Status Date / Time blueberry Allergy Swelling Verified 03/26/22 09:25 <DILLON Can - Last Filed: 03/26/22 15:32> Active Medications: Current Medications Acetaminophen (Acetaminophen 325 Mg Tablet) 650 mg PO Q6H PRN PRN Reason: Headache/Pain Mild Scale (1-3) Last Admin: 03/26/22 09:17 Dose: 650 mg Al Hydroxide/Mg Hydroxide (Magnesium Hydrox/Alum Hydrox 30 Ml Oral.Susp) 30 ml PO Q6H PRN PRN Reason: Heartburn/Nausea Divalproex Sodium (Divalproex Sodium Er 500 Mg Tab.Er.24h) 1,000 mg PO BEDTIME COUNTS INCLUDE 234 BEDS AT [facility] Folic Acid (Folic Acid 1 Mg Tablet) 1 mg PO DAILY COUNTS INCLUDE 234 BEDS AT THE [facility] Last Admin: 03/26/22 09:18 Dose: 1 mg Hydroxyzine HCl (Hydroxyzine Hcl 25 Mg Tablet) 25 mg PO Q6H PRN PRN Reason: Anxiety Lamotrigine (Lamotrigine 100 Mg Tablet) 150 mg PO BID COUNTS [facility]CLUDE 234 BEDS AT [facility] Last Admin: 03/26/22 09:18 Dose: 150 mg Levetiracetam (Levetiracetam 1,000 Mg Tablet) 2,000 mg PO BID [facility]S [facility]CLUDE 234 BEDS AT [facility] Last Admin: 03/26/22 09:18 Dose: 2,000 mg Magnesium Hydroxide (Milk Of Magnesia 30 Ml Oral.Susp) 30 ml PO DAILY PRN PRN Reason: Constipation Nitrofurantoin Macrocrystals (Nitrofurantoin Macrocrystal 50 Mg Capsule) 100 mg PO BID COUNTS [facility]CLUDE 234 BEDS AT [facility] Last Admin: 03/26/22 09:18 Dose: 100 mg Oxcarbazepine (Oxcarbazepine 300 Mg Tablet) 1,200 mg PO BID [facility]S [facility]CLUDE 234 BEDS AT [facility] Last Admin: 03/26/22 09:17 Dose: 1,200 mg Risperidone (Risperidone 2 Mg Tablet) 2 mg PO DAILY COUNTS [facility]CLUDE 234 BEDS AT [facility] Risperidone (Risperidone 2 Mg Tablet) 4 mg PO BEDTIME COUNTS INCLUDE 234 BEDS AT THE [facility] Trazodone HCl (Trazodone Hcl 50 Mg Tablet) 50 mg PO BEDTIME MRX1 PRN PRN Reason: Insomnia <DILLON Can - Last Filed: 03/26/22 15:32> Home medications: Home Medications Medication Instructions Recorded Confirmed Last Taken Type acetaminophen 650 mg tablet 650 mg PO Q8H PRN Pain 03/24/22 03/24/22 03/23/22 History folic acid 1 mg tablet 1 mg PO DAILY 03/24/22 03/24/22 03/23/22 History haloperidol 5 mg tablet 5 mg PO Q8H PRN Agitation 03/24/22 03/24/22 03/23/22 History ibuprofen 400 mg tablet 400 mg PO Q8H PRN Pain 03/24/22 03/24/22 03/23/22 Histor y lamotrigine 150 mg tablet 150 mg PO BID 03/24/22 03/24/22 03/23/22 History levetiracetam 1,000 mg tablet 2,000 mg PO BID 03/24/22 03/24/22 03/23/22 History lorazepam 2 mg tablet 2 mg PO Q8H PRN Agitation 03/24/22 03/24/22 Unknown History nitrofurantoin 100 mg capsule 100 mg PO BID 03/24/22 03/24/22 03/23/22 History oxcarbazepine 600 mg tablet 1,200 mg PO BID 03/24/22 03/24/22 03/23/22 History risperidone 0.5 mg tablet 0.5 mg PO BID 03/24/22 03/24/22 03/23/22 History <DILLON Can - Last Filed: 03/26/22 15:32> Physical Exam Vital Signs and Narrative: Vital Signs: Last Vital Signs Temp 97.9 F 03/26/22 08:33 Pulse 113 H 03/26/22 08:33 Resp 16 03/26/22 08:33 BP 154/78 H 03/26/22 08:33 Pulse Ox 98 03/26/22 08:33 O2 Del Method 03/26/22 08:33 <DILLON Can - Last Filed: 03/26/22 15:32> General: AOx3, no acute distress Head: Small, circular abrasion on lateral aspect of right eye, scabbed over, non-erythematous. Slight bruising under right eye. Resp: CTA bilaterally CVS: S1, S2, RRR GI: +BS, NT, no distention Skin: No rash Neuro: Cranial nerves II-XII grossly intact. Motor grossly intact Extremities: No edema Psych: Appropriate affect <DILLON Can Last Filed: 03/26/22 15:32> Results Labs CBC and Chem 7: 03/24/22 08:24 <DILLON Can - Last Filed: 03/26/22 15:32> Assessment and Plan (1) Seizure disorder: Status: Acute <DILLON Can - Last Filed: 03/26/22 15:32> (2) Routine history and physical examination of adult: Status: Acute <DILLON Can - Last Filed: 03/26/22 15:32> Pt is a 36-year-old female with a PMH significant for?manic/psychotic behaviors, bipolar 1 disorder, and a seizure disorder who is admitted to Psychiatry with medical consult for standard admission history and physical. Patient complains of a recent seizure episode in room resulting in a head strike but no LOC. Acute seizure episode with headstrike Pt states she had unwitnessed seizure episode 2 days ago with head strike hitting the corner of the bed, with ensuing headache and dizziness CT of head to r/o acute intracranial process Seizure disorder Continue levetiracetam, Continue lamotrigine Continue oxcarbazepine Bipolar 1 disorder As per management by psychiatry team Thank you for allowing us to participate in the care of this pt. Will follow pending CT results. <DILLON Can - Last Filed: 03/26/22 15:32> Pt is a 36-year-old female with a PMH significant for?manic/psychotic behaviors, bipolar 1 disorder, and a seizure disorder who is admitted to Psychiatry with medical consult for standard admission history and physical. Patient complains of a recent seizure episode in room resulting in a head strike but no LOC. Acute seizure episode with headstrike Pt states she had unwitnessed seizure episode 2 days ago with head strike hitting the corner of the bed, with ensuing headache and dizziness CT head obtained that showed no acute intracranial process Seizure disorder Continue levetiracetam, Continue lamotrigine Continue oxcarbazepine Bipolar 1 disorder As per management by psychiatry team Thank you for allowing us to participate in the care of this pt. Will follow pending CT results. <Kia Pina MD - Last Filed: 03/26/22 18:38> Time Spent With Patient Time: Total time managing care of this patient today ____ minutes. <DILLON Can - Last Filed: 03/26/22 15:32>
[2022-03-26 19:08] VITALS: BP 141/88; PULSE 101; RESP 16; TEMP 36.8; O2SAT 100
[2022-03-26] MEDS: Divalproex Sodium ER 500 MG TAB.ER.24H 1000 MG PO (22:57)
[2022-03-26] MEDS: risperiDONE 2 MG TABLET 4 MG PO (22:58)
[2022-03-27 08:00] VITALS: BP 149/91; PULSE 105; TEMP 36.3; O2SAT 100
[2022-03-27] MEDS: lamoTRIgine 100 MG TABLET 150 MG PO ×2 (09:06→19:41)
[2022-03-27] MEDS: OXcarbazepine 300 MG TABLET 1200 MG PO ×2 (09:06→19:44)
[2022-03-27] MEDS: nitrofurantoin macrocrystaL 50 MG CAPSULE 100 MG PO ×2 (09:07→19:40)
[2022-03-27] MEDS: levETIRAcetam 1,000 MG TABLET 2000 MG PO ×2 (09:07→19:43)
[2022-03-27] MEDS: Folic Acid 1 MG TABLET PO (09:07)
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
[2022-03-27] MEDS: Tamsulosin HCL 0.4 MG CAPSULE PO (14:27)
[2022-03-27 18:00] VITALS: BP 167/83; PULSE 126; RESP 16; TEMP 36.6; O2SAT 100
[2022-03-27] MEDS: risperiDONE 3 MG TABLET 6 MG PO (19:40)
[2022-03-27] MEDS: Divalproex Sodium ER 500 MG TAB.ER.24H 1000 MG PO (19:43)
--- NOTE | 2022-03-27 20:22 | PM.EVENT ---
Event Note Date of Service: 03/27/22 Event Note: Patient's CT of head found no acute intracranial abnormality. Signing off at this time. Please let us know if there are any acute questions or concerns. Time Spent With Patient Time: Total time managing care of this patient today ____ minutes.
[2022-03-28 09:36] VITALS: BP 114/74; PULSE 96; RESP 16; TEMP 36.5; O2SAT 100
[2022-03-28] MEDS: lamoTRIgine 100 MG TABLET 150 MG PO ×2 (10:15→21:26)
[2022-03-28] MEDS: Tamsulosin HCL 0.4 MG CAPSULE PO (10:16)
[2022-03-28] MEDS: nitrofurantoin macrocrystaL 50 MG CAPSULE 100 MG PO ×2 (10:16→21:26)
[2022-03-28] MEDS: Folic Acid 1 MG TABLET PO (10:16)
[2022-03-28] MEDS: OXcarbazepine 300 MG TABLET 1200 MG PO ×2 (10:16→21:25)
[2022-03-28] MEDS: levETIRAcetam 1,000 MG TABLET 2000 MG PO ×2 (10:16→21:26)
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
[2022-03-28 15:01] LABS: Ammonia 46 umol/L (13-55)
[2022-03-28 15:10] LABS: Alanine Aminotransferase 8 U/L (0-31); Alkaline Phosphatase 70 U/L (39-117); Aspartate Amino Transferase 13 U/L (5-31); Bilirubin Direct 0.2 mg/dL (0.0-0.5); Bilirubin Total 0.7 mg/dL (0.0-1.0); Total Protein 8.1 g/dL (6.5-8.0)
[2022-03-28 15:19] LABS: Valproate 116.5 mcg/mL (50.0-100.0)
[2022-03-28 18:00] VITALS: BP 122/76; PULSE 80; RESP 20; TEMP 36; O2SAT 98
[2022-03-28] MEDS: Divalproex Sodium ER 250 MG TAB.ER.24H 750 MG PO (21:25)
[2022-03-28] MEDS: risperiDONE 3 MG TABLET 6 MG PO (21:26)
--- NOTE | 2022-03-29 | EEG_ITS ---
This is a 16-channel EEG with an EKG lead. The patient is reported awake during the tracing. Background EEG rhythm is 7 to 8 hertz 5 to 50 microvolt posteriorly and lower amplitude fast anteriorly. Photic stimulation does not produce any significant driving. Hypoventilation is not performed. Cardiac lead does not reveal any significant abnormality. No sharp wave spikes or paroxysmal tendency noted. IMPRESSION: Generalized slowing suggestive of bihemispheric probably metabolic encephalopathy with no evidence of epileptic tendency. MD MARI Hook/MAHAMED / [id number]
[2022-03-29 08:15] VITALS: BP 128/94; PULSE 108; RESP 16; TEMP 36.3; O2SAT 99
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
[2022-03-29 09:28] LABS: MANUAL DIFF FLAG NO
[2022-03-29 09:32] LABS: Basophils Percent Auto 0.3 % (0-2); Eosinophils Absolute Auto 0.1 X10*3/uL (0.0-0.4); Hematocrit 37.6 % (37.0-47.0); Hemoglobin 12.9 g/dl (12.0-16.0); Imm Gran Abs Auto 0.02 X10*3/uL (0.00-0.03); Imm Gran Pct Auto 0.3 % (0.0-0.4); Lymphocytes Absolute Auto 1.9 X10*3/uL (1.2-4.9); Lymphocytes Percent Auto 27.6 % (20-40); Mean Corpuscular HGB Conc 34.3 g/dl (31.0-35.0); Mean Corpuscular Hemoglobin 30.5 pg (27.0-33.0); Mean Corpuscular Volume 88.9 fL (80.0-98.0); Mean Platelet Volume 10.1 fL (9.4-12.3); Monocytes Absolute Auto 0.6 X10*3/uL (0.1-1.2); Monocytes Percent Auto 8.1 % (2-11); Neutrophils Absolute Auto 4.2 x10*3/uL (2.0-8.3); Neutrophils Percent Auto 62.7 % (45-73); Platelet Count 186 X10*3/uL (160-400); Red Blood Count 4.23 X10*6/uL (4.20-5.50); Red Cell Distribution Width 13.9 % (11.0-16.0); White Blood Count 6.8 X10*3/uL (4.8-10.8)
[2022-03-29 09:45] LABS: Ammonia 55 umol/L (13-55)
[2022-03-29] MEDS: Tamsulosin HCL 0.4 MG CAPSULE PO (09:47)
[2022-03-29] MEDS: OXcarbazepine 300 MG TABLET 1200 MG PO ×2 (09:47→19:51)
[2022-03-29] MEDS: lamoTRIgine 100 MG TABLET 150 MG PO ×2 (09:47→19:50)
[2022-03-29] MEDS: nitrofurantoin macrocrystaL 50 MG CAPSULE 100 MG PO ×2 (09:47→19:49)
[2022-03-29] MEDS: levETIRAcetam 1,000 MG TABLET 2000 MG PO ×2 (09:48→19:50)
[2022-03-29] MEDS: Folic Acid 1 MG TABLET PO (09:48)
[2022-03-29 09:49] LABS: Valproate 97.7 mcg/mL (50.0-100.0)
[2022-03-29 09:50] LABS: Alanine Aminotransferase 7 U/L (0-31); Albumin Level 4.7 g/dL (3.5-5.0); Alkaline Phosphatase 68 U/L (39-117); Anion Gap 15 (12-20); Aspartate Amino Transferase 13 U/L (5-31); Bilirubin Direct 0.2 mg/dL (0.0-0.5); Bilirubin Total 0.5 mg/dL (0.0-1.0); Blood Urea Nitrogen 17 mg/dL (9-16); Calcium 9.6 mg/dL (8.4-10.2); Carbon Dioxide 24 mmol/L (22-29); Chloride 104 mmol/L (96-108); Estimated Glomerular Filt Rate > 60; Glucose Random 88 mg/dL (60-115); Potassium 4.3 mmol/L (3.3-5.1); Sodium 139 mmol/L (135-145); Total Protein 7.6 g/dL (6.5-8.0)
[2022-03-29 16:25] VITALS: BP 136/80; PULSE 124; TEMP 36.4
[2022-03-29] MEDS: Acetaminophen 325 MG TABLET 650 MG PO (19:48)
[2022-03-29] MEDS: Divalproex Sodium ER 250 MG TAB.ER.24H 750 MG PO (19:51)
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
--- NOTE | 2022-03-30 08:22 | PM.NEUROCN ---
History of Present Illness Data of Consult Service Date: 03/30/22 Primary Care Provider: Unknown Physician HPI Reason for consult: Seizure disorder 36 years old woman admitted on psychiatric floor with acute psychotic symptoms including agitation. Apparently she had reported to the staff that she was having seizures. Staff has not witnessed any episode. One time she came out of her room and stated that she had a seizure and fell. Staff found that a plastic container was broken. It looked like that she might have fallen. She has reported history of seizure disorder but further details were not available. When I talked to her she was quite agitated and was only interested to leave and not interested to be examined or interviewed. Review of Systems Review of Systems: Could not be done with her [facility] Past Medical History Medical History (Updated 03/27/22 @ 18:19 by Fish Mueller MD) Bipolar 1 disorder, mixed, severe Schizoaffective disorder Seizure disorder Social History Social History Household Members: Family and Children Household Members Other:: LIVES WITH GRANDMOTHER, UNCLE, AND 2 CHILDREN Do you presently have visiting nurse or other home services: No Unable to assess alcohol history related to: Unknown Patient Tobacco Use Status: Never used Tobacco Smoked in Last 30 Days: No Patient Interested in Nicotine Replacement: No Patient Given Instructions on How to Stop Smoking: No Second Hand Smoke Exposure: No Use of substances other than those prescribed or required for medical reasons: Yes Substance Use Type: Marijuana Currently Displaying Signs/Symptoms of Drug Intoxication Withdrawal: No Do you feel safe in your current relationship?: No Current Relationship Is there a partner from a previous relationship who is making you feel unsafe now?: No Are you made to feel afraid or neglected: No Advance Directives: No Advance Directives Information Provided: Yes Do you have thoughts of harming others: None Do you have a plan to hurt others: No Plan Recently lost weight without trying: No Eating poorly because of decreased appetite: Yes Nutrition Risks: No Nutritional Risk Patient : No : No Poor oral hygiene: No service: No Sexual orientation: Straight/Heterosexual Meds Allergies Allergy/AdvReac Type Severity Reaction Status Date / Time blueberry Allergy Swelling Verified 03/26/22 09:25 Active Medications: Current Medications Acetaminophen (Acetaminophen 325 Mg Tablet) 650 mg PO Q6H PRN PRN Reason: Headache/Pain Mild Scale (1-3) Last Admin: 03/29/22 19:48 Dose: 650 mg Al Hydroxide/Mg Hydroxide (Magnesium Hydrox/Alum Hydrox 30 Ml Oral.Susp) 30 ml PO Q6H PRN PRN Reason: Heartburn/Nausea Benztropine Mesylate (Benztropine Mesylate 0.5 Mg Tablet) 0.5 mg PO BEDTIME [facility] Last Admin: 03/29/22 20:00 Dose: Not Given Divalproex Sodium (Divalproex Sodium Er 250 Mg Tab.Er.24h) 750 mg PO BEDTIME [facility] Last Admin: 03/29/22 19:51 Dose: 750 mg Folic Acid (Folic Acid 1 Mg Tablet) 1 mg PO DAILY [facility] Last Admin: 03/29/22 09:48 Dose: 1 mg Haloperidol (Haloperidol 5 Mg Tablet) 5 mg PO BEDTIME [facility] Last Admin: 03/29/22 20:00 Dose: Not Given Hydroxyzine HCl (Hydroxyzine Hcl 25 Mg Tablet) 25 mg PO Q6H PRN PRN Reason: Anxiety Lamotrigine (Lamotrigine 100 Mg Tablet) 150 mg PO BID [facility] Last Admin: 03/29/22 19:50 Dose: 150 mg Levetiracetam (Levetiracetam 1,000 Mg Tablet) 2,000 mg PO BID [facility] Last Admin: 03/29/22 19:50 Dose: 2,000 mg Magnesium Hydroxide (Milk Of Magnesia 30 Ml Oral.Susp) 30 ml PO DAILY PRN PRN Reason: Constipation Nitrofurantoin Macrocrystals (Nitrofurantoin Macrocrystal 50 Mg Capsule) 100 mg PO BID [facility] Last Admin: 03/29/22 19:49 Dose: 100 mg Oxcarbazepine (Oxcarbazepine 300 Mg Tablet) 1,200 mg PO BID [facility] Last Admin: 03/29/22 19:51 Dose: 1,200 mg Tamsulosin HCl (Tamsulosin Hcl 0.4 Mg Capsule) 0.4 mg PO DAILY [facility] Last Admin: 03/29/22 09:47 Dose: 0.4 mg Trazodone HCl (Trazodone Hcl 50 Mg Tablet) 50 mg PO BEDTIME MRX1 PRN PRN Reason: Insomnia Home Medications Medication Instructions Recorded Confirmed Last Taken Type acetaminophen 650 mg tablet 650 mg PO Q8H PRN Pain 03/24/22 03/24/22 03/23/22 History folic acid 1 mg tablet 1 mg PO DAILY 03/24/22 03/24/22 03/23/22 History haloperidol 5 mg tablet 5 mg PO Q8H PRN Agitation 03/24/22 03/24/22 03/23/22 History ibuprofen 400 mg tablet 400 mg PO Q8H PRN Pain 03/24/22 03/24/22 03/23/22 History lamotrigine 150 mg tablet 150 mg PO BID 03/24/22 03/24/22 03/23/22 History levetiracetam 1,000 mg tablet 2,000 mg PO BID 03/24/22 03/24/22 03/23/22 History lorazepam 2 mg tablet 2 mg PO Q8H PRN Agitation 03/24/22 03/24/22 Unknown History nitrofurantoin 100 mg capsule 100 mg PO BID 03/24/22 03/24/22 03/23/22 History oxcarbazepine 600 mg tablet 1,200 mg PO BID 03/24/22 03/24/22 03/23/22 History risperidone 0.5 mg tablet 0.5 mg PO BID 03/24/22 03/24/22 03/23/22 History Physical Exam Vital Signs: Vital Signs: Last Vital Signs Temp 97.6 F 03/29/22 16:25 Pulse 124 H 03/29/22 16:25 Resp 16 03/29/22 08:15 BP 136/80 03/29/22 16:25 Pulse Ox 99 03/29/22 08:15 O2 Del Method 03/29/22 08:15 Neuro: Other: she is alert and awake with normal spontaneity of speech fluency comprehension and agitated affect. There is mild eye movement abnormalities but because of limited exam I could not comment any more. Face was symmetrical. There was no obvious focal arm or leg weakness. Deep tendon reflexes were trace to 1+ with flexor plantars. Speech was normal. Results Labs 03/29/22 09:21 03/29/22 09:21 Labs: Short CBC 03/29/22 Range/Units 09:21 WBC 6.8 (4.8-10.8) X10*3/uL Hgb 12.9 (12.0-16.0) g/dl Hct 37.6 (37.0-47.0) % Plt Count 186 (160-400) X10*3/uL BMP 03/29/22 09:21 Sodium 139 Potassium 4.3 Chloride 104 Carbon Dioxide 24 BUN 17 H Creatinine 0.69 Calcium 9.6 Liver Function 03/29/22 Range/Units 09:21 Total Bilirubin 0.5 (0.0-1.0) mg/dL Direct Bilirubin 0.2 (0.0-0.5) mg/dL AST 13 (5-31) U/L ALT 7 (0-31) U/L Alkaline Phosphatase 68 (39-117) U/L Albumin 4.7 (3.5-5.0) g/dL Noncontrast head CT did not reveal any significant abnormality and electroencephalogram revealed generalized slowing. Assessment and Plan (1) Seizure disorder: Status: Acute 36 years old woman whose primary problem seems to be a psychotic disorder. As far as seizure disorder is concerned, it cannot be confirmed at this time. Overall history reported to me by staff is also somewhat atypical for seizure disorder. I noted that her blood pressure has been running on the lower side and she has been taking some medicines that could also make her dizzy and lightheaded putting her at risk of falling. As far as seizure disorder is concerned or epilepsy is concerned, it would require further evaluation with long-term EEG but I would defer that at this point and would only consider it when her mental status is more stabilized and she was still having symptoms. Time Spent With Patient Time: Total time managing care of this patient today ____ minutes. Procedures Date of Service Date of Service: 03/30/22
[2022-03-30 08:35] VITALS: BP 133/96; PULSE 135; RESP 16; TEMP 37.2; O2SAT 98
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
[2022-03-30 16:45] VITALS: BP 138/70; PULSE 113; TEMP 36.6
[2022-03-31] MEDS: Tamsulosin HCL 0.4 MG CAPSULE PO (09:00)
[2022-03-31 09:06] VITALS: BP 117/83; PULSE 105; RESP 16; TEMP 36.3; O2SAT 99
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
[2022-03-31 16:25] VITALS: BP 138/80; PULSE 105; TEMP 36.8; O2SAT 99
--- NOTE | 2022-03-31 23:52 | PC.NURSE ---
Patient very paranoid and thinks staff is poisoning her food. Refused all HS, provider notified.
[2022-04-01 08:20] VITALS: BP 126/86; PULSE 98; RESP 16; TEMP 36.7; O2SAT 98
[2022-04-01] MEDS: OXcarbazepine 300 MG TABLET 1200 MG PO ×2 (08:51→20:03)
[2022-04-01] MEDS: HaloperidoL 5 MG TABLET 10 MG PO (08:53)
[2022-04-01] MEDS: levETIRAcetam 1,000 MG TABLET 2000 MG PO ×2 (08:55→20:04)
[2022-04-01] MEDS: lamoTRIgine 100 MG TABLET 150 MG PO ×2 (08:56→20:04)
[2022-04-01] MEDS: Milk of Magnesia 30 ML ORAL.SUSP PO (09:02)
[2022-04-01] MEDS: Tamsulosin HCL 0.4 MG CAPSULE PO (09:02)
[2022-04-01] MEDS: nitrofurantoin macrocrystaL 50 MG CAPSULE 100 MG PO ×2 (09:02→20:03)
[2022-04-01] MEDS: Folic Acid 1 MG TABLET PO (09:03)
[2022-04-01 17:22] VITALS: BP 114/76; PULSE 119; TEMP 37.4; O2SAT 100
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
[2022-04-02] MEDS: OXcarbazepine 300 MG TABLET 1200 MG PO (08:38)
[2022-04-02] MEDS: nitrofurantoin macrocrystaL 50 MG CAPSULE 100 MG PO (08:38)
[2022-04-02] MEDS: lamoTRIgine 100 MG TABLET 150 MG PO (08:39)
[2022-04-02] MEDS: Folic Acid 1 MG TABLET PO (08:39)
[2022-04-02] MEDS: levETIRAcetam 1,000 MG TABLET 2000 MG PO (08:39)
[2022-04-02] MEDS: HaloperidoL 5 MG TABLET 10 MG PO (08:39)
[2022-04-02] MEDS: Tamsulosin HCL 0.4 MG CAPSULE PO (08:39)
[2022-04-02 08:45] VITALS: BP 127/81; PULSE 96; TEMP 36.9; O2SAT 98
== END 2022-04-02 11:33 | disposition home or self-care (01) | DRG 750 ==
PROVIDERS: Psychiatry & Neurology Psychiatry; Admitting Provider Psychiatry & Neurology Psychiatry; Visit Provider Psychiatry & Neurology Psychiatry
DX: F25.0 Schizoaffective disorder, bipolar type (principal); G40.909 Epilepsy, unspecified, not intractable, without status epilepticus; Z79.899 Other long term (current) drug therapy
CPT/HCPCS: 36415; 70450; 80053; 80061; 80076; 80164; 82140; 82248; 85025; 95816